=== PATIENT | female | born 2000 | race Caucasian/White ===

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

== ENCOUNTER → 2020-05-17 | Outpatient (CLI) | payer OTHER | LOC: LAB SHORT 17:03 → LAB 17:03 | DX: N39.0 Urinary tract infection, site not specified (principal) | CPT/HCPCS: 87077; 87086; 87186 ==